=== PATIENT | male | born 1975 | race American Indian/Alaskan Native ===

== ENCOUNTER 2018-01-20 12:09 | Emergency (ER) | payer SELFPAY ==
[2018-01-20] MEDS ORDERED: TORADOL IM ONE (13:55)
[2018-01-20] MEDS ORDERED: NORCO 5/325 PO ONE (13:55)
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
[2018-01-20 14:32] VITALS: BP 133/76
== END 2018-01-20 14:30 | disposition home or self-care (01) ==
LOC: ED 12:09
DX: K02.9 Dental caries, unspecified (principal)
CPT/HCPCS: 96372; 99282; J1885

== ENCOUNTER 2018-07-20 18:08 | Emergency (ER) | payer OTHER ==
--- NOTE | 2018-07-20 18:29 | Emergency Department Report ---
Blank Doc - Documentation Documentation: This is a 43-year-old male that presents with cough, nasal congestion, frontal headache. Patient stated has chest discomfort during cough. Denies any SOB. This initial assessment diagnostic orders/clinical plan/treatment(s) is/are subject to change based on patient's health status, clinical progression and re- assessment by fellow clinical providers in the ED. Further treatment and workup at subsequent clinical providers discretion. Patient/guardians urged not to elope from ED s their condition may be serious if not clinically assessed and managed. Initial orders include: 1-Patient sent to [facility] for further evaluation and treatment 2- CXR
[2018-07-20 18:30] VITALS: BP 137/83
--- NOTE | 2018-07-20 21:23 | XRay Report ---
FINAL REPORT EXAM: XR CHEST ROUTINE 2V HISTORY: cough TECHNIQUE: 2 views of the chest. PRIORS: None. FINDINGS: The cardiomediastinal silhouette appears normal. The lungs are clear. The bones and soft tissues are unremarkable. IMPRESSION: No evidence of acute cardiopulmonary disease
[2018-07-20] MEDS ORDERED: IBUPROFEN PO ONE (21:59)
[2018-07-20] MEDS ORDERED: IBUPROFEN ONE (22:00)
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
== END 2018-07-20 23:03 | disposition home or self-care (01) ==
LOC: ED 18:08
DX: K05.00 Acute gingivitis, plaque induced (principal); K08.89 Other specified disorders of teeth and supporting structures; R05 Cough; R07.89 Other chest pain; F12.10 Cannabis abuse, uncomplicated
CPT/HCPCS: 71046; 93005; 93010; 99283